=== PATIENT | female | born 1980 | race Caucasian/White ===

== ENCOUNTER 2022-08-22 14:16 | Emergency (ER) | payer SELFPAY ==
[~2022-08-22] VITALS: Ht 172.7 cm; Wt 104.3 kg
--- NOTE | 2022-08-22 14:20 | NUR ---
called for triage not in the waiting room.
--- NOTE | 2022-08-22 15:08 | NUR ---
dr armas at bedside for eval
--- NOTE | 2022-08-22 15:53 | NUR ---
URINE SAMPLE PROVIDED BY [facility]
[2022-08-22 17:15] LABS: BASOPHILS % (AUTO) 0.5 % (0.0-2.0); EOSINOPHILS % (AUTO) 4.9 % (0.0-6.0); HEMATOCRIT 32 % (33-45); LYMPHOCYTES # (AUTO) 2.1 K/uL (0.8-4.8); LYMPHOCYTES % (AUTO) 35.2 % (20.0-44.0); MEAN CORPUSCULAR HGB CONC 34 g/dl (31.0-36.0); MEAN CORPUSCULAR VOLUME 93 fL (82-100); MONOCYTES # (AUTO) 0.7 K/uL (0.1-1.30); MONOCYTES % (AUTO) 11.9 % (2.0-12.0); NEUTROPHILS # (AUTO) 2.8 K/uL (1.8-8.9); NEUTROPHILS % (AUTO) 47.5 % (43.0-81.0); PLATELET COUNT (AUTO) 215 K/uL (150-450); RED BLOOD CELL COUNT(AUTO) 3.47 MIL/uL (4.0-5.2); WHITE BLOOD COUNT (AUTO) 5.8 K/uL (4.3-11.0)
[2022-08-22 17:54] LABS: CALCIUM, SERUM 8.3 mg/dL (8.5-10.1); CARBON DIOXIDE 36 mmol/L (21-32); CHLORIDE 100 mmol/L (98-107); GLUCOSE 100 mg/dL (74-106); POTASSIUM 4.2 mmol/L (3.5-5.1); SODIUM SERUM 138 mmol/L (136-145); UREA NITROGEN, BLOOD 21 mg/dL (7-18)
--- NOTE | 2022-08-22 19:30 | NUR ---
RECEIVED THIS 42/F CAME EARLIER WITH CC OF RIGHT LEG SWELLING. PATIENT IS AAOX4. ABLE TO MAKE NEEDS KNOWN. HAS PERIPHERAL LINE ON LEFT AC G20. ATTACHED TO MONITOR. VITALS CHECKED. PATIENT IS ABLE TO AMBULATE TO RESTROOM.
[2022-08-22 20:51] VITALS: BP 107/64
--- NOTE | 2022-08-22 20:51 | NUR ---
Patient discharged to home in stable condition. Written and verbal after care instructions given. Patient verbalizes understanding of instruction.
--- NOTE | 2022-08-22 20:51 | NUR ---
IV CANNULA REMOVED
[2022-08-22 23:44] LABS: ALANINE AMINOTRANSFERASE 54 U/L (12-78); ALBUMIN 3.2 g/dL (3.4-5.0); ALKALINE PHOSPHATASE 95 U/L (46-116); ASPARTATE AMINOTRANSFERASE 50 U/L (15-37); BILIRUBIN,DIRECT 0.1 mg/dL (0.0-0.2); BILIRUBIN,TOTAL 0.3 mg/dL (0.2-1.0); TOTAL PROTEIN, SERUM 6.6 g/dL (6.4-8.2)
== END 2022-08-22 20:52 | disposition home or self-care (01) ==
LOC: ER 14:29
DX: M79.89 Other specified soft tissue disorders (principal); R60.0 Localized edema; Z88.2 Allergy status to sulfonamides; Z60.2 Problems related to living alone
CPT/HCPCS: 36415; 71045-TC; 80048-TC; 80076-TC; 83880; 84484-TC; 85025-TC; 85730-TC; 93970-TC